=== PATIENT | female | born 1960 | race Caucasian/White ===

== ENCOUNTER 2019-06-09 06:01 | Day surgery (SDC) | payer OTHER ==
[~2019-06-09] VITALS: Ht 167.6 cm; Wt 96.8 kg
[~2019-06-09 06:01] MED LIST: SODIUM CHLORIDE 0.9% 1,000 ML ONE
[2019-06-09] MEDS ORDERED: SODIUM CHLORIDE 0.9% 1,000 ML IV ONE (06:30)
[2019-06-09] MEDS ORDERED: EVE1000C3 PO (06:42)
[2019-06-09] MEDS ORDERED: ACET-66 PO (06:42)
[2019-06-09] MEDS ORDERED: TIOT185 IH (06:42)
[2019-06-09] MEDS ORDERED: ASCO1TAB43 PO (06:42)
[2019-06-09] MEDS ORDERED: CRAN250C PO (06:42)
[2019-06-09] MEDS ORDERED: HYDR-1475 PO (06:42)
[2019-06-09] MEDS ORDERED: METO25 PO (06:42)
[2019-06-09] MEDS ORDERED: MONT10TA21 PO (06:42)
[2019-06-09] MEDS ORDERED: ASCO500 PO (06:42)
[2019-06-09] MEDS ORDERED: MOME13HF2 IH (06:42)
[2019-06-09] MEDS ORDERED: MULT-412 PO (06:42)
[2019-06-09] MEDS ORDERED: [UNRECOGNIZED DRUG - REMARK] PO (06:42)
[2019-06-09] MEDS ORDERED: VITA1TAB39 PO (06:42)
[2019-06-09] MEDS ORDERED: GINK120T4 PO (06:42)
[2019-06-09] MEDS ORDERED: CALC250T2 PO (06:42)
[2019-06-09] MEDS ORDERED: GABA-531 PO (06:42)
[2019-06-09] MEDS ORDERED: FAMO20 PO (06:42)
[2019-06-09] MEDS ORDERED: LISI-662 PO (06:42)
[2019-06-09] MEDS ORDERED: CALC-1038 PO (06:42)
[2019-06-09] MEDS ORDERED: FentaNYL CITRATE-PF 100 MCG/2 ML VIAL ONE (07:21)
[2019-06-09] MEDS ORDERED: MIDAZOLAM HCL 2 MG/2 ML VIAL ONE (07:21)
[2019-06-09] MEDS ORDERED: MethylPREDNISolone SOD SUCC 125 MG/2 ML VIAL IVP ONE (08:15)
[2019-06-09] MEDS ORDERED: MethylPREDNISolone SOD SUCC 125 MG/2 ML VIAL ONE (08:48)
[2019-06-09] MEDS ORDERED: OXYGEN THERAPY IH SCH (20:00)
== END 2019-06-09 10:00 | disposition home or self-care (01) ==
LOC: SURGERY 06:01
PROVIDERS: ATTEND Internal Medicine Critical Care Medicine
DX: R05 Cough (principal); J84.9 Interstitial pulmonary disease, unspecified; J34.89 Other specified disorders of nose and nasal sinuses; J98.8 Other specified respiratory disorders; B37.0 Candidal stomatitis; J38.4 Edema of larynx; M19.90 Unspecified osteoarthritis, unspecified site; I10 Essential (primary) hypertension; J45.909 Unspecified asthma, uncomplicated; Z98.890 Other specified postprocedural states; Z79.899 Other long term (current) drug therapy
CPT/HCPCS: 31623; 31624; 71045; 87070; 87101; 87206; 87220; J2250; J2930; J3010; J7030; 87015; 87205; 88112; 88312